=== PATIENT | male | born 1990 | race Asian ===

== ENCOUNTER 2016-07-19 21:56 | Emergency (ER) | payer OTHER ==
[2016-07-19] MEDS ORDERED: FAMOTIDINE 20 MG TAB PO ONE (22:22)
[2016-07-19] MEDS ORDERED: ONDANSETRON 4 MG/2 ML VIAL IVP ONE (22:22)
[2016-07-19] MEDS ORDERED: NS 1,000 ML IV ONE (22:22)
[2016-07-19] MEDS ORDERED: MAALOX/LIDO/HYOSC GI COCKTAIL 55 ML BOTTLE PO ONE (22:22)
--- NOTE | 2016-07-19 22:25 | EDPHY ---
H & P Stated Complaint: ABD PAIN X2 HR Time Seen by Provider: 07/19/16 22:15 HPI/ROS: HPI The patient presents with epigastric abdominal pain which began about 2 hours ago after drinking coffee. The pain is twisting in nature, moderate in severity , has been constant, does not radiate, and is associated with several episodes of nonbloody nonbilious emesis. He has a history of similar pain about 1 year ago after drinking coffee which improved on its own. He denies any dark or bloody stools.. REVIEW OF SYSTEMS Constitutional: No fever, no chills. Eyes: No discharge. ENT: No sore throat. Cardiovascular: No chest pain, no palpitations. Respiratory: No cough, no shortness of breath. Gastrointestinal: See HPI Genitourinary: No hematuria. Musculoskeletal: No back pain. Skin: No rashes. Neurological: No headache. PMHx: No diabetes, no hypertension Soc Hx: Denies alcohol use PHYSICAL General Appearance: Alert, somewhat uncomfortable appearing Eyes: Pupils equal and round no pallor or injection ENT, Mouth: Mucous membranes moist Respiratory: There are no retractions, lungs are clear to auscultation Cardiovascular: Regular rate and rhythm Gastrointestinal: Abdomen is soft and tender in the epigastrium, no masses, bowel sounds normal Neurological: A&O, moves all extremities Skin: Warm and dry, no rashes Musculoskeletal: Neck is supple non tender Extremities: symmetrical, full range of motion Psychiatric: Patient is oriented X 3, there is no agitation Source: Patient Exam Limitations: No limitations - Medical/Surgical History Hx Asthma: No Hx Chronic Respiratory Disease: No Hx Diabetes: No Hx Cardiac Disease: No Hx Renal Disease: No Hx Cirrhosis: No Hx Alcoholism: No Hx HIV/AIDS: No Hx Splenectomy or Spleen Trauma: No Other PMH: DENIES - Social History Smoking Status: Never smoked Constitutional: Initial Vital Signs Temperature (C) 36.6 C 07/19/16 21:59 Heart Rate 74 07/19/16 21:59 Respiratory Rate 18 07/19/16 21:59 Blood Pressure 130/90 H 07/19/16 21:59 O2 Sat (%) 98 07/19/16 21:59 O2 Delivery Mode Room Air Allergies/Adverse Reactions: No Known Allergies Allergy (Unverified 07/19/16 22:02) Home Medications: Medication Instructions Recorded Famotidine [Pepcid 20 MG (*)] 20 mg PO BID #30 tab 07/19/16 Medical Decision Making Procedures: Bedside right upper quadrant Ultrasound- performed and interpreted by me. Indication: Epigastric abdominal pain Findings: Normal appearing gallbladder without gallstones, no pericholecystic fluid, no gallbladder wall thickening Impression: No sonographic evidence of cholecystitis or cholelithiasis ED Course/Re-evaluation: 10:15 p.m.- Initial patient encounter. We will plan to start an IV, check basic labs, and administer medications for his symptoms. 11:50 p.m.- The patient is reassessed by me. He is feeling better after IV fluids and medications. I performed a bedside right upper quadrant ultrasound which is normal. I feel he most likely is suffering from gastritis. I have advised him to alter his diet to avoid coffee and other acidic foods. Differential Diagnosis: This is a 26-year-old male who presents with several hours of epigastric abdominal pain after drinking coffee. This is associated with vomiting. Differential diagnosis includes gastritis, pancreatitis, biliary colic, cholecystitis. - Data Points Laboratory Results: Laboratory Results 07/19/16 22:25 07/19/16 22:25 07/19/16 22:25 WBC 12.05 H 10^3/uL (3.80-9.50) RBC 5.71 10^6/uL (4.40-6.38) Hgb 16.4 g/dL (13.7-17.5) Hct 47.9 % (40.0-51.0) MCV 83.9 fL (81.5-99.8) MCH 28.7 pg (27.9-34.1) MCHC 34.2 g/dL (32.4-36.7) RDW 12.3 % (11.5-15.2) Plt Count 308 10^3/uL (150-400) MPV 9.2 fL (8.7-11.7) Neut % (Auto) 56.5 % (39.3-74.2) Lymph % (Auto) 34.9 % (15.0-45.0) Frio % (Auto) 7.4 % (4.5-13.0) Eos % (Auto) 0.8 % (0.6-7.6) Baso % (Auto) 0.2 L % (0.3-1.7) Nucleat RBC Rel Count 0.0 % (0.0-0.2) Absolute Neuts (auto) 6.80 H 10^3/uL (1.70-6.50) Absolute Lymphs (auto) 4.20 H 10^3/uL (1.00-3.00) Absolute Monos (auto) 0.89 H 10^3/uL (0.30-0.80) Absolute Eos (auto) 0.10 10^3/uL (0.03-0.40) Absolute Basos (auto) 0.03 10^3/uL (0.02-0.10) Absolute Nucleated RBC 0.00 10^3/uL (0-0.01) Immature Gran % 0.2 % (0.0-1.1) Immature Gran # 0.03 10^3/uL (0.00-0.10) Sodium 142 mEq/L (134-144) Potassium 3.5 mEq/L (3.5-5.2) Chloride 103 mEq/L (97-110) Carbon Dioxide 26 mEq/l (22-31) Anion Gap 13 mEq/L (8-16) BUN 11 mg/dL (7-23) Creatinine 0.9 mg/dL (0.7-1.3) Estimated GFR > 60 Glucose 94 mg/dL (70-100) Calcium 9.2 mg/dL (8.5-10.4) Total Bilirubin 1.0 mg/dL (0.1-1.4) Conjugated Bilirubin 0.3 mg/dL (0.0-0.5) Unconjugated Bilirubin 0.7 mg/dL (0.0-1.1) AST 27 IU/L (17-59) ALT 52 IU/L (21-72) Alkaline Phosphatase 93 IU/L (38-126) Total Protein 7.2 g/dL (6.3-8.2) Albumin 4.4 g/dL (3.5-5.0) Lipase 116.0 IU/L (23-300) Medications Given: Discontinued Medications Famotidine (Pepcid) 20 mg PO EDNOW ONE Stop: 07/19/16 22:23 Last Admin: 07/19/16 23:05 Dose: 20 mg Sodium Chloride (Ns) 1,000 mls @ 0 mls/hr IV ONCE ONE PRN Reason: Wide Open Stop: 07/19/16 22:23 Last Admin: 07/19/16 22:25 Dose: 1,000 mls Miscellaneous Medication (Gi Cocktail) 55 ml PO EDNOW ONE Stop: 07/19/16 22:23 Last Admin: 07/19/16 23:18 Dose: 55 ml Ondansetron HCl (Zofran) 4 mg IVP EDNOW ONE Stop: 07/19/16 22:23 Last Admin: 07/19/16 22:25 Dose: 4 mg Departure - Departure Disposition: Home, Routine, Self-Care Clinical Impression: Gastritis Qualifiers: Qualifier Code: (K29.00) Acute gastritis without bleeding Condition: Good Instructions: Gastritis (ED), Diet for Stomach Ulcers and Gastritis (ED) Additional Instructions: Please return if your worse in any way-if your pain continues or you developed vomiting. Otherwise I have given you the name of a primary care doctor who you can follow up within the next 2-3 days. Referrals: Chang Fong [Doctor of Osteopathy] - As per Instructions Prescriptions: Famotidine [Pepcid 20 MG (*)] 20 mg PO BID #30 tab
[2016-07-19 22:37] LABS: % IMMATURE GRANULYOCYTES 0.2 % (0.0-1.1); ABSOLUTE IMMATURE GRANULOCYTES 0.03 10^3/uL (0.00-0.10); ADD DIFF? NO; ADD MORPH? NO; ADD SCAN? NO; ATYPICAL LYMPHOCYTE FLAG 0 (0-99); FRAGMENT RBC FLAG 0 (0-99); HEMATOCRIT 47.9 % (40.0-51.0); HEMOGLOBIN 16.4 g/dL (13.7-17.5); LEFT SHIFT FLG 0 (0-99); LIPEMIA HEMOLYSIS FLAG 90 (0-99); MEAN CELL HEMOGLOBIN 28.7 pg (27.9-34.1); MEAN CELL HEMOGLOBIN CONCENTR. 34.2 g/dL (32.4-36.7); MEAN CELL VOLUME 83.9 fL (81.5-99.8); MEAN PLATELET VOLUME 9.2 fL (8.7-11.7); PLATELET CLUMPS FLAG 0 (0-99); PLATELET COUNT 308 10^3/uL (150-400); RED BLOOD CELL COUNT 5.71 10^6/uL (4.40-6.38); RED CELL DISTRIBUTION WIDTH 12.3 % (11.5-15.2)
[2016-07-19 22:44] LABS: ALANINE AMINOTRANSFERASE 52 IU/L (21-72); ALBUMIN 4.4 g/dL (3.5-5.0); ALKALINE PHOSPHATASE 93 IU/L (38-126); ANION GAP 13 mEq/L (8-16); ASPARTATE AMINOTRANSFERASE 27 IU/L (17-59); BILIRUBIN-CONJUGATED 0.3 mg/dL (0.0-0.5); BILIRUBIN-UNCONJUGATED 0.7 mg/dL (0.0-1.1); CALCIUM 9.2 mg/dL (8.5-10.4); CARBON DIOXIDE 26 mEq/l (22-31); CHLORIDE 103 mEq/L (97-110); CREATININE 0.9 mg/dL (0.7-1.3); GLOMERULAR FILTRATION RATE > 60; GLUCOSE 94 mg/dL (70-100); POTASSIUM 3.5 mEq/L (3.5-5.2); SODIUM 142 mEq/L (134-144); TOTAL PROTEIN 7.2 g/dL (6.3-8.2)
[2016-07-20 00:23] VITALS: BP 140/72; PULSE 78; RESP 16; TEMP 98.1; O2SAT 99
== END 2016-07-20 00:23 | disposition home or self-care (01) ==
DX: K29.00 Acute gastritis without bleeding (principal)
CPT/HCPCS: 96374; J2405